=== PATIENT | male | born 1960 | race African-American/Black ===

== ENCOUNTER → 2020-11-24 | Outpatient (CLI) | payer OTHER ==
[~2020-11-24] MED LIST: ALEVE220 M1 PO
[2020-11-24 09:07] LABS: URINE BILIRUBIN NEGATIVE (Negative); URINE BLOOD NEGATIVE (Negative); URINE CLARITY CLEAR; URINE COLOR YELLOW; URINE GLUCOSE-RANDOM NEGATIVE (Negative); URINE KETONES NEGATIVE (Negative); URINE LEUKOCYTES-REFLEX NEGATIVE (Negative); URINE NITRITE-REFLEX NEGATIVE (Negative); URINE PROTEIN NEGATIVE (Negative); URINE SPECIFIC GRAVITY >= 1.030 (1.005-1.030); URINE UROBILINOGEN 0.2 E.U./dl (0.2-1.0)
[2020-11-24 09:09] LABS: ABSOLUTE BASOPHILS 0.1 thou/uL (0.0-0.2); ABSOLUTE EOSINOPHILS 0.1 thou/uL (0.0-0.7); ABSOLUTE LYMPHOCYTES 2.2 thou/uL (0.8-5.3); ABSOLUTE MONOCYTES 0.4 thou/uL (0.0-1.2); ABSOLUTE NEUTROPHILS 1.8 thou/uL (1.6-8.1); BASOPHILS 1.2 %; EOSINOPHILS 1.4 %; HEMATOCRIT 39.9 % (42.0-52.0); HEMOGLOBIN 13.7 gm/dL (14.0-18.0); LYMPHOCYTES 49.3 %; MCH 30.5 pg (26.0-34.0); MCHC 34.2 g/dL (28.0-37.0); MCV 89.2 fL (80.0-100.0); MONOCYTES 9.2 %; MPV 6.6 fl. (7.2-11.1); NUCLEATED RBCS 0 /100WBC; PLATELET COUNT* 295 thou/uL (150-400); POLYS 38.9 %; RBC 4.48 mil/uL (4.50-6.00); RDW-CV 13.6 % (10.5-14.5); WBC 4.5 thou/uL (4.0-11.0)
[2020-11-24 09:22] LABS: PROTIME 10.6 Seconds (9.20-11.50)
[2020-11-24 09:25] LABS: ALBUMIN 4.2 g/dL (3.4-5.0); POTASSIUM 4.5 mmol/L (3.5-5.1); TOTAL BILIRUBIN 0.9 mg/dL (<0.1-1.0); TOTAL PROTEIN 7.6 g/dL (6.4-8.2)
== END ==
LOC: M.LAB 07:25
PROVIDERS: ATTEND Orthopaedic Surgery
DX: Z01.812 Encounter for preprocedural laboratory examination (principal); M16.11 Unilateral primary osteoarthritis, right hip

== ENCOUNTER 2020-11-30 05:47 | Inpatient (IN) | payer OTHER ==
[~2020-11-30] VITALS: Ht 170.2 cm; Wt 83.9 kg
[2020-11-30 08:00] VITALS: BP 145/94
[2020-11-30 15:15] VITALS: BP 148/79
--- NOTE | 2020-11-30 17:00 | NUR ---
ASSUMED CARE OF PT. RCV'D REPORT FROM JUAN SMALL. PT CONTINUES TO C/O NAUSEA DESPITE RCVNG IV ZOFRAN. PT STATES HE DOES NOT WANT PHENERGAN AT THIS POINT. SO AT BEDSIDE. CALL LIGHT WITHIN REACH. WILL CONTINUE TO MONITOR PT CLOSELY.
[2020-11-30 17:15] VITALS: BP 133/91
--- NOTE | 2020-11-30 17:59 | NUR ---
PT W/NOTED DRY HEAVES, PT IS NOW AGREEABLE TO TRY IV PHENERGAN.
[2020-11-30 20:00] VITALS: BP 139/89
--- NOTE | 2020-11-30 22:25 | NUR ---
RECEIVED REPORT FROM DAY SHIFT NURSE. ADMISSION HISTORY AND ASSESSMENT COMPLETED. DENIES PAIN.
[2020-12-01 00:30] VITALS: BP 117/71
[2020-12-01 02:28] LABS: ABSOLUTE LYMPHOCYTES 1.9 thou/uL (0.8-5.3); ABSOLUTE MONOCYTES 0.9 thou/uL (0.0-1.2); ABSOLUTE NEUTROPHILS 6.3 thou/uL (1.6-8.1); BASOPHILS 0.5 %; HEMATOCRIT 36.3 % (42.0-52.0); HEMOGLOBIN 12.2 gm/dL (14.0-18.0); LYMPHOCYTES 21.2 %; MCH 30.2 pg (26.0-34.0); MCHC 33.7 g/dL (28.0-37.0); MCV 89.7 fL (80.0-100.0); MONOCYTES 9.4 %; MPV 7.5 fl. (7.2-11.1); NUCLEATED RBCS 0 /100WBC; PLATELET COUNT* 270 thou/uL (150-400); POLYS 68.9 %; RBC 4.05 mil/uL (4.50-6.00); RDW-CV 13.5 % (10.5-14.5); WBC 9.2 thou/uL (4.0-11.0)
[2020-12-01 04:40] VITALS: BP 136/70
[2020-12-01 08:00] VITALS: BP 125/74
[2020-12-01] MEDS ORDERED: COLACE100 MG PO (09:19)
[2020-12-01] MEDS ORDERED: XARELTO10 MG PO (09:19)
[2020-12-01 10:26] VITALS: BP 136/70
[2020-12-01] MEDS ORDERED: XARELTO10 M1 PO (10:39)
[2020-12-01] MEDS ORDERED: PERCOCET 5-3251 EACH PO (10:40)
[2020-12-01 10:41] VITALS: BP 136/70
--- NOTE | 2020-12-01 14:00 | NUR ---
PT AND SIGNIFICANT OTHER GIVEN D/CHARGE INSTRUCTIONS. PT HAD WALKED W/CLARENCE PT, PRIOR TO DISCHARGE. PT AND SIGNIFICANT OTHER VERBALIZED UNDERSTANDING OF D/CHARGE INSTRUCTIONS. PT TAKEN OUT VIA W/CHAIR FOR D/CHARGE HOME TO SELF CARE. HOME HEALTH CONTACTED BY CASE MANAGEMENT.
--- NOTE | 2020-12-01 15:37 | NUR ---
Pt is a right hip djd, discharging to home today. HH arranged through [facility] , faxed referral. CM checked the cost of Pt's xarelto, it will be $216.76, Pt states he is able to afford. Pt resides at home. Independent. Pt has a walker. No hx of SNF. Supportive family. Pt states he is discharging to: [id number], [place], [place]
--- NOTE | 2020-12-01 22:00 | OP ---
[facility] [address] [place] [address] OPERATIVE REPORT Name: FRANCISCA MARSHALL Room: [address] IN .R.#: [id number] Admission: 11/30/20 Attend Phys: Ada Wood Discharge: 12/01/20 Date of : 64 Report #: [id number] THIS REPORT FOR: cc: Noman Carcamo MD, Timothy J. MD Greiner, Robert F. II DO ~ DATE OF SURGERY: 11/30/2020 PREOPERATIVE DIAGNOSIS: Right hip osteoarthritis. POSTOPERATIVE DIAGNOSIS: Right hip osteoarthritis. PROCEDURE: Right total hip arthroplasty. SURGEON: Jose Juan Maynard II, DO SORT WORKER: TRANG Borjas ANESTHESIA: General endotracheal. ESTIMATED BLOOD LOSS: 300 mL ANTIBIOTICS: Ancef preoperatively. DRAINS: Medium Hemovac. COMPLICATIONS: None. CONDITION: The patient stable to recovery room. IMPLANTS: Listed in operative record and progress note. BRIEF HISTORY: The patient was seen in the preoperative area. Preoperative H and P was performed. Site was marked, questions were answered. Risks and benefits were discussed with the patient in detail about surgery. The patient wished to proceed assuming all risks. DESCRIPTION OF PROCEDURE: The patient was taken to the operative suite, placed supine on the table, given appropriate anesthesia. The patient's operative hip was sterilely prepped and draped in the [place] table leg vega in supine position. Surgery began by longitudinal incision over the anterior portion of the hip. This was carried down to subcutaneous tissues. A small doris was made in the tensor fascia. It was then split along its fibers and retracted laterally. An H capsulotomy was then performed and careful hemostasis was maintained with electrocautery and Aquamantys. The head and neck cutting alignment guide was then checked under fluoroscopic guidance[place] [address] OPERATIVE REPORT Name: FRANCISCA MARSHALL Room: [address] IN [facility].#: [id number] Admission: 11/30/20 Attend Phys: Ada Wood Discharge: 12/01/20 Date of : 64 Report #: [id number] was made in the head and neck and this was removed. Attention was turned to the acetabulum. Excess labrum was removed as well as osteophytes. It was then reamed in sequential fashion up to appropriate size. This showed excellent fit and fill and excellent bleeding bone on fluoroscopic guidance. The acetabular cup was then malleted into position and secured with 2 cancellous screws. Metal liner was then applied. The patient's leg was then rotated and extended in the [place] table to expose the femur. It was then broached in sequential fashion up to appropriate size. The appropriate neck was then trialed with appropriate head length and shown to have excellent fit and fill and excellent stability of the hip through all range of motion upon reduction. These trials were removed. Final stem was then malleted into position and the final head was then malleted in position. It was reduced in appropriate fashion, checked with C-arm for appropriate leg length and shown to have excellent leg length throughout the exam without evidence of dislocation upon range of motion and shuck testing. Wound was then copiously irrigated. Hemostasis was obtained with electrocautery and Aquamantys. Pain cocktail was injected, drain was activated. The H capsulotomy was then closed with #1 Vicryl in [id number] fashion. Tensor fascia was closed with #1 Vicryl in running fashion. Skin was closed with 2-0 Vicryl, running 3-0 Monocryl with Dermabond. Sterile dressing applied. The patient transported to recovery room in stable condition. Counts were correct throughout the procedure. <ELECTRONICALLY SIGNED> By: Jose Juan Maynard II, DO 12/01/202199 12 39Jose Juan Maynard II, DO /nt
== END 2020-12-01 14:10 | disposition home health service (06) | DRG 470 ==
LOC: M.ORTHSURG → M.TBA 07:09 → M.ORTHSURG 07:25 → EDSTATUS 15:48 → M.ORTHSURG 15:52 → M.TBA 12-01 14:10
PROVIDERS: Orthopaedic Surgery; ADMIT Internal Medicine; ATTEND Internal Medicine
PROC: 0SR902A Replacement of Right Hip Joint with Metal on Polyethylene Synthetic Substitute, Uncemented, Open Approach (ICD-10-PCS; principal; 2020-11-30)
DX: M16.11 Unilateral primary osteoarthritis, right hip (principal); E66.3 Overweight; Z20.822 Contact with and (suspected) exposure to COVID-19; Z80.3 Family history of malignant neoplasm of breast; Z68.29 Body mass index [BMI] 29.0-29.9, adult